=== PATIENT | male | born 1950 | race Two or more races ===

== ENCOUNTER → 2024-09-05 | Outpatient (CLI) | payer OTHER, MEDICAID, SELFPAY ==
[2024-09-05 09:13] LABS: Glucose Estimated Average 131 mg/dL (80-131); Hemoglobin A1C 6.2 % Hgb (4.8-6.0)
== END | disposition home or self-care (01) ==
PROVIDERS: PCP Internal Medicine; Referring Provider Internal Medicine; Visit Provider Internal Medicine
DX: E10.65 Type 1 diabetes mellitus with hyperglycemia (principal)
CPT/HCPCS: 36415; 83036

== ENCOUNTER → 2024-09-10 | Outpatient (CLI) | payer OTHER, MEDICAID, SELFPAY ==
--- NOTE | 2024-09-10 10:11 | XR_ITS ---
Examination: Abdomen sonogram, complete Date and time of exam: September 10, 2024 1024 hours INDICATIONS: Right upper abdominal pain after eating beginning 4 days ago. Technique: Multiple real-time grayscale transabdominal sonographic images of the abdomen have been obtained. Findings: Normal gallbladder Normal common bile duct 0.5 cm Pancreatic head 2.5 cm Aorta not enlarged Liver 12.7 cm no focal liver lesions Normal hepatopedal portal venous flow Patent IVC Right kidney 11.6 x 6.9 x 6.4 cm cortex 1.9 cm Left kidney 11.5 x 4.9 x 4.6 cm renal cortex 1.7 cm Mild left hydronephrosis Mild bilateral renal parenchymal scar formation Spleen 9.7 cm IMPRESSION: Normal gallbladder Mild left hydronephrosis, consider CT scan abdomen pelvis without contrast follow-up to assess etiology of the left hydronephrosis
[2024-09-10 11:52] LABS: Alanine Aminotransferase 13 U/L (10-49); Albumin, Serum 4.7 gm/dL (3.4-4.8); Albumin/Globulin Ratio 1.8 (1.2-2.2); Alkaline Phosphatase 68 U/L (46-116); Anion Gap 6 (7-16); Aspartate Amino Transferase 19 U/L (0-34); BUN/Creatinine Ratio 18 Ratio (12-20); Bilirubin,Total 1.8 mg/dL (0.3-1.2); Blood Urea Nitrogen 18 mg/dL (9-23); Calcium 10.2 mg/dL (8.3-10.6); Calcium (Corrected) 10.2 mg/dL (8.5-10.1); Carbon Dioxide 30.2 mMol/L (20.0-31.0); Chloride 104 mMol/L (98-107); Globulin 2.6 gm/dL (2.3-3.5); Glucose 103 mg/dL (74-106); Osmolality,Calculated 281 (275-295); Potassium 4.4 mMol/L (3.4-5.1); Sodium 140 mMol/L (136-145); Total Protein 7.3 gm/dL (5.7-8.2); eGFR > 60 See Note
== END | disposition home or self-care (01) ==
LOC: COPL 10:00
PROVIDERS: PCP Internal Medicine; Referring Provider Internal Medicine; Visit Provider Radiology Diagnostic Radiology
DX: N13.30 Unspecified hydronephrosis (principal); I10 Essential (primary) hypertension
CPT/HCPCS: 36415; 76700; 80053

== ENCOUNTER → 2024-10-17 | Outpatient (CLI) | payer MEDICARE, SELFPAY ==
--- NOTE | 2024-10-17 09:26 | EKG_ITS ---
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 : 1950 Requested By: Solomon Germain Order Number: [id number] Reading MD: Solomon Germain Measurements Intervals Garber Rate: 51 P: 4 PA: 145 QRS: -52 QRSD: 134 T: 208 QT: 450 QTc: 415 Interpretive Statements SINUS BRADYCARDIA INDETERMINATE AXIS RIGHT BUNDLE BRANCH BLOCK MODERATE T-WAVE ABNORMALITY, CONSIDER ANTEROLATERAL ISCHEMIA MODERATE T-WAVE ABNORMALITY, CONSIDER INFERIOR ISCHEMIA Compared to ECG 04/28/2023 17:53:21 Indeterminate axis now present T-wave abnormality now present Possible ischemia now present Right-axis deviation no longer present /store/S0/[id number].pdf
== END | disposition home or self-care (01) ==
PROVIDERS: PCP Internal Medicine; Referring Provider Internal Medicine; Visit Provider Internal Medicine
DX: I10 Essential (primary) hypertension (principal)
CPT/HCPCS: 93005

== ENCOUNTER → 2024-12-27 | Outpatient (CLI) | payer MEDICARE, MEDICAID, SELFPAY ==
[2024-12-27 15:32] LABS: Basophils % (Auto) 0 % (0-2.5); Eosinophils # (Auto) 0.3 Thou/mm3 (0.0-0.5); Eosinophils % (Auto) 5 % (0-10); Hematocrit 42.3 % (41.0-53.0); Immature Granulocytes % (Auto) 0 % (0-0); Immature Granulocytes Auto 0.01 Thou/mm3 (0.00-0.00); Lymphocytes # (Auto) 2.2 Thou/mm3 (1.0-4.8); Lymphocytes % (Auto) 35 % (10-50); Mean Corpuscular HGB Conc 33.1 g/dl (31.0-37.0); Mean Corpuscular Hemoglobin 29.2 pg (25.0-35.0); Mean Corpuscular Volume 88 fL (80-100); Monocytes # (Auto) 0.6 Thou/mm3 (0.0-0.8); Monocytes % (Auto) 9 % (0-12); Neutrophils # (Auto) 3.3 Thou/mm3 (1.8-7.7); Neutrophils % (Auto) 51 % (37-80); Nucleated Red Blood Cell % 0 /100 WBC (0); Platelet Count 191 Thou/mm3 (140-440); RDW Standard Deviation 44.9 fL (35.1-43.9); White Blood Count 6.5 Thou/mm3 (3.8-10.6)
[2024-12-27 15:44] LABS: Glucose Estimated Average 157 mg/dL (80-131); Hemoglobin A1C 7.1 % Hgb (4.8-6.0)
[2024-12-27 15:51] LABS: Alanine Aminotransferase 21 U/L (10-49); Albumin, Serum 4.3 gm/dL (3.4-4.8); Albumin/Globulin Ratio 1.7 (1.2-2.2); Alkaline Phosphatase 75 U/L (46-116); Anion Gap 10 (7-16); Aspartate Amino Transferase 35 U/L (0-34); BUN/Creatinine Ratio 15 Ratio (12-20); Bilirubin,Total 2.2 mg/dL (0.3-1.2); Blood Urea Nitrogen 16 mg/dL (9-23); Calcium 9.8 mg/dL (8.3-10.6); Calcium (Corrected) 9.8 mg/dL (8.5-10.1); Carbon Dioxide 25.3 mMol/L (20.0-31.0); Cardiac Risk Estimate 3.3 RATIO (4.0-6.7); Chloride 107 mMol/L (98-107); Cholesterol 147 mg/dL (132-200); Creatinine (Component) 1.1 mg/dL (0.6-1.3); Globulin 2.5 gm/dL (2.3-3.5); Glucose 81 mg/dL (74-106); HDL Cholesterol 45 mg/dL (40-60); LDL Cholesterol,Calculated 86 mg/dL (0-130); Osmolality,Calculated 283 (275-295); Potassium 4.3 mMol/L (3.4-5.1); Sodium 142 mMol/L (136-145); Total Protein 6.8 gm/dL (5.7-8.2); Triglycerides 82 mg/dL (30-150); eGFR > 60 See Note
[2024-12-27 16:14] LABS: Collection Type, Urine Clean Catch; Squamous Epithelial Cell,Urine 0 /hpf (0-5)
[2024-12-27 16:37] LABS: Bilirubin,Urine Negative (Negative); Blood,Urine Negative (Negative); Clarity,Urine Clear (Clear/Hazy); Color,Urine Lt-Yellow (Lt Yel-Yel); Glucose, Urine Negative (Negative); Ketones,Urine Negative (Negative); Leukocyte Esterase,Urine Negative (Negative); Nitrite,Urine Negative (Negative); Protein,Urine Negative (Neg - Trace); RBC,Urine 1 /hpf (0-3); Specific Gravity,Urine 1.019 (1.001-1.035); WBC,Urine 1 /hpf (0-5)
[2024-12-27 16:39] LABS: Creatinine MALB Rnd Ur 83 mg/dL (30-125); Microalbumin Creat Ratio 5 mg/gCrea (<30); Microalbumin, Random Urine 4 mg/L (0-300)
== END | disposition home or self-care (01) ==
LOC: COPL 14:53
PROVIDERS: PCP Internal Medicine; Referring Provider Internal Medicine; Visit Provider Internal Medicine
DX: D52.9 Folate deficiency anemia, unspecified (principal); E10.65 Type 1 diabetes mellitus with hyperglycemia; I10 Essential (primary) hypertension
CPT/HCPCS: 36415; 80053; 80061; 81001; 82043; 82570; 83036; 85025